=== PATIENT | female | born 1940 | race Caucasian/White ===

== ENCOUNTER 2022-09-28 15:06 | Observation (INO) ==
[2022-09-28] MEDS ORDERED: Ondansetron ODT 4 MG TAB.RAPDIS SL PRN (19:26)
[2022-09-28] MEDS ORDERED: Melatonin 3 MG TABLET PO PRN (19:26)
[2022-09-28] MEDS ORDERED: Naloxone 0.4 MG/ML INJ IVP PRN (19:26)
[2022-09-28] MEDS ORDERED: 0.9 % Sodium Chloride 500 ML IVC ONE (20:32)
[2022-09-28] MEDS ORDERED: 0.9 % Sodium Chloride 500 ML IV.SOLN IV ONE (21:05)
[2022-09-28] MEDS ORDERED: Azithromycin 500 MG VIAL IVPB ONE (21:05)
[2022-09-28 21:22] LABS: Basophils # 0.1 K/mcL (0.0-0.2); Basophils % 0.4 %; Eosinophils % 0.2 %; Hematocrit 32.7 % (35.3-44.9); Hemoglobin 10.4 g/dL (11.5-15.4); Immature Granulocytes % 1.4 % (0-4); Lymphocytes # 1.4 K/mcL (0.6-4.6); Lymphocytes % 10.4 %; Mean Corpuscular HGB Conc 31.8 g/dL (31.6-35.5); Mean Corpuscular Hemoglobin 30.3 pg (28.0-33.3); Mean Corpuscular Volume 95.3 fL (83.0-100.0); Mean Platelet Volume 9.5 fL (9.4-12.4); Monocytes # 0.4 K/mcL (0.0-1.3); Monocytes % 3.2 %; Platelet Count 376 K/mcL (140-400); Red Blood Count 3.43 M/mcL (3.82-4.97); Red Cell Distribution Width 13.6 % (11.5-14.5); Segmented Neutrophils % 84.4 %
[2022-09-28] MEDS ORDERED: *HR* HYDROcodone/Acet 5/325 mg TABLET PO PRN (21:41)
[2022-09-28] MEDS ORDERED: Acetaminophen 325 MG TABLET PO PRN (21:41)
[2022-09-28 21:43] LABS: BUN/Creatinine Ratio 58 (6-26); Blood Urea Nitrogen 40 mg/dL (8-23); Calcium 9.7 mg/dL (8.6-10.3); Carbon Dioxide 19 mEq/L (23-29); Chloride 103 mEq/L (98-107); Glucose 116 mg/dL (70-105); Osmolality,Calculated 277 (280-300); Potassium 4.9 mEq/L (3.5-5.1); Sodium 128 mEq/L (136-145)
[2022-09-28] MEDS ORDERED: Azithromycin 500 MG in 0.9 % Sodium Chloride 250 ML IVPB SCH (22:00)
[2022-09-28 22:13] LABS: C-Reactive Protein > 300 mg/L (Less than 10)
[2022-09-29] MEDS ORDERED: Cefepime HCl 2,000 MG in 0.9 % Sodium Chloride 10 ML IVP SCH (06:00)
== END 2022-09-28 23:59 | disposition other institution (70) ==
LOC: 2NENU
PROVIDERS: ADMIT Internal Medicine; ATTEND Internal Medicine